=== PATIENT | male | born 1990 | race Caucasian/White ===

== ENCOUNTER 2019-01-18 10:23 | Outpatient (REF) | payer MEDICAID, SELFPAY ==
[2019-01-18 13:37] LABS: Abs Immature Grans 0.07 k/cumm (0.0-0.09); Absolute Basophil Count 0.03 k/cumm (0.0-0.2); Absolute Eosinophil Count 0.07 k/cumm (0.0-0.7); Absolute Lymphocyte Count 2.12 k/cumm (1.2-3.4); Absolute Monocyte Count 0.61 k/cumm (0.11-0.7); Absolute Neutrophil Count 4.81 k/cumm (1.2-6.7); Basophils % 0.4; Eosinophils % 0.9; HCT 46.3 % (40.0-50.0); HGB 15.6 g/dL (13.5-17.5); Immature Grans % 0.9; Lymphocytes % 27.5; Mean Corp. HGB Concentration 33.7 g/dL (32.0-36.0); Mean Corpuscular Hemoglobin 29.6 pg (27.0-33.0); Mean Corpuscular Volume 87.9 fL (80-95); Monocytes % 7.9; Neutrophils % 62.4; RBC 5.27 m/cumm (4.50-6.00); RBC Distribution Width 13.3 % (11.8-14.1); White Blood Cell Count 7.71 k/cumm (4.4-10.8)
[2019-01-18 13:47] LABS: ALT 43 U/L (12-78); AST 18 U/L (15-37); Albumin 4.1 g/dL (3.4-5.0); Alkaline Phosphatase 95 U/L (46-116); Anion Gap 12.4 mmol/L (3-11); BUN 15 mg/dL (7-18); Bilirubin, Total 0.6 mg/dL (0.2-1.0); CO2 26.6 mmol/L (21.0-32.0); CREATININE 0.97 mg/dL (0.70-1.30); Calcium 9.3 mg/dL (8.5-10.1); Calculated LDL 105 mg/dL; Chloride 103 mmol/L (98-107); Cholesterol 166 mg/dL (50-200); Glucose 81 mg/dL (70-100); HDL Cholesterol 36 mg/dL (40-60); Potassium 4.3 mmol/L (3.5-5.1); Sodium 142 mmol/L (136-145); TSH (W/Ref FT4) 1.94 uIU/mL (0.36-3.74); Total Protein 7.4 g/dL (6.4-8.2); Triglyceride 127 mg/dL (30-150)
[2019-01-18 14:06] LABS: Diff Comment PLT Morph Reviewed; Platelet Count 99 x1000/uL (130-400)
[2019-01-18 14:07] LABS: RBC Morphology Normal
[2019-01-18 14:44] LABS: ESR 9 mm/hr (0-15)
[2019-01-19 12:52] LABS: Lyme Ab w Rflx to Lyme Confirm Equivocal
[2019-01-20 15:28] LABS: IgG Band(s) p23 kDa; IgG Immunoblot Negative; IgM Band(s) SEE COMMENTS kDa; IgM Immunoblot Negative; Immunoblot Interpretation SEE COMMENTS
[2019-01-21 01:46] LABS: Anaplasma phagocytophilum Negative (Negative); B. miyamotoi PCR Negative (Negative); Babesia divergens/MO-1 Negative (Negative); Babesia duncani Negative (Negative); Babesia microti Negative (Negative); Ehrlichia chaffeensis Negative (Negative); Ehrlichia ewingii/canis Negative (Negative); Ehrlichia muris eauclairensis Negative (Negative)
== END 2019-01-18 10:43 ==
LOC: NCHCN 10:23
PROVIDERS: PCP Family Medicine; Visit Provider Family Medicine
DX: M25.50 Pain in unspecified joint (principal); R53.83 Other fatigue; R23.2 Flushing
CPT/HCPCS: 80053; 80061; 83721; 85652; 86617; 87798; 84443; 85025; 86618